=== PATIENT | male | born 2000 | race Caucasian/White ===

== ENCOUNTER → 2023-12-09 | Outpatient (CLI) | payer OTHER ==
[2023-12-09 16:09] LABS: BUN/Creat Ratio 21.12 Ratio (12.00-20.00); Blood Urea Nitrogen 16.9 mg/dL (9.0-27.0); Carbon Dioxide 23.2 mmol/L (21.6-31.8); Chloride 103 mmol/L (96-109); Glucose 88 mg/dL (70-110); Potassium 4.2 mmol/L (3.5-5.5); Sodium 139 mmol/L (135-145); Testosterone <10.00 ng/dL (123.06-813.86)
--- NOTE | 2023-12-10 00:03 | XR ---
EXAMINATION TYPE: XR lumbar spine 2 or 3V DATE OF EXAM: 12/09/2023 COMPARISON: None HISTORY: Back pain TECHNIQUE: 3 view lumbar spine FINDINGS: There is narrowing of the posterior disc space L5-S1. Remaining disc heights are preserved. Vertebral body heights are preserved. Alignment is normal. IMPRESSION: 1. Mild posterior degenerative disc change L5-S1
== END | disposition home or self-care (01) ==
LOC: LABWHC1 10:19
PROVIDERS: ATTEND Family Medicine
DX: F64.9 Gender identity disorder, unspecified (principal); M54.9 Dorsalgia, unspecified; M51.37 Other intervertebral disc degeneration, lumbosacral region
CPT/HCPCS: 36415; 72100; 80048; 82670; 84403

== ENCOUNTER 2024-03-02 22:32 | Emergency (ER) | payer OTHER ==
[2024-03-02 22:44] VITALS: RESP 16; TEMP 98.9
--- NOTE | 2024-03-02 22:46 | ED ---
General Adult HPI - General Chief complaint: Psychiatric Symptoms Stated complaint: Mental health Time Seen by Provider: 03/02/24 22:35 Source: patient, EMS Mode of arrival: EMS - History of Present Illness Initial comments: Dictation was produced using [employer] dictation software. please excuse any grammatical, word or spelling errors. Chief Complaint: 23-year-old individual who identifies as female but biologically male presents to the emergency department for depression and alleged suicidal ideation History of Present Illness: Patient 23-year-old individual presents to the ER for alleged suicidal ideation and depression. Patient would like to be referred to as "she"'. Patient states that after work she likes to go for walks however had a confrontation with her fianc. Ultimately ambulance was called because of concern of possible suicidal ideation. Patient denies suicidality. Denies homicidal ideation. She states that she is stressed out. She does have history of suicidal behavior. The ROS documented in this emergency department record has been reviewed and confirmed by me. Those systems with pertinent positive or negative responses have been documented in the HPI. All other systems are other negative and/or noncontributory. - Related Data Allergies Allergy/AdvReac Type Severity Reaction Status Date / Time No Known Allergies Allergy Verified 03/02/24 22:44 Review of Systems ROS Statement: Those systems with pertinent positive or pertinent negative responses have been documented in the HPI. ROS Other: All systems not noted in ROS Statement are negative. Past Medical History Past Medical History: No Reported History Past Surgical History: No Surgical Hx Reported Past Psychological History: Depression General Exam - General Exam Comments Initial Comments: General: Well-appearing, nontoxic, no acute distress. Head: Normocephalic, atraumatic Eyes: PERRLA, EOMI ENT: Airway patent Chest: Nonlabored breathing Skin: No visual rash, normal skin tone Neuro: Alert and oriented 3 Musculoskeletal: No gross abnormalities Course Vital Signs 03/02/24 22:34 Temperature 98.9 F Pulse Rate 122 H Respiratory 16 Rate Blood Pressure 137/85 O2 Sat by Pulse 98 Oximetry Medical Decision Making - Medical Decision Making Was pt. sent in by a medical professional or institution (, PA, [employer], urgent care, hospital, or long-term...) When possible be specific @ -No Did you speak to anyone other than the patient for history (EMS, parent, family, police, friend...)? What history was obtained from this source @ -No Did you review nursing and triage notes (agree or disagree)? Why? @ -I reviewed and agree with nursing and triage notes Were old charts reviewed (outside hosp., previous admission, EMS record, old EKG, old radiological studies, urgent care reports/EKG's, long-term records)? Report findings @ -No old charts were reviewed Differential Diagnosis (chest pain, altered mental status, abdominal pain women, abdominal pain men, vaginal bleeding, musculoskeletal, weakness, fever, dyspnea, syncope, headache, dizziness, GI bleed, back pain, seizure, CVA, palpatations, mental health)? @ -Differential Mental Health: Depression, anxiety, bipolar, psychosis, schizophrenia, borderline personality, situational depression, adjustment disorder, behavioral disorder, brain tumor, malingering, substance abuse, encephalopathy, medication reaction, dementia, hypothyroidism, degenerative neurologic disorder, lupus.... This is not meant to be all-inclusive list EKG interpreted by me (3pts min.). @ -None done X-rays interpreted by me (1pt min.). @ -None done CT interpreted by me (1pt min.). @ -None done U/S interpreted by me (1pt. min.). @ -None done What testing was considered but not performed or refused? (CT, X-rays, U/S, labs)? Why? @ -None What meds were considered but not given or refused? Why? @ -None Was smoking cessation discussed for >3mins.? @ -No Were there social determinants of health that impacted care today? How? (Homelessness, low income, unemployed, alcoholism, drug addiction, transportation, low edu. Level, literacy, decrease access to med. care, fdc, rehab)? @ -No Was there de-escalation of care discussed even if they declined (Discuss DNR or withdrawal of care, Hospice)? DNR status @ -No What co-morbidities impacted this encounter? (DM, HTN, Smoking, COPD, CAD, Cancer, CVA, ARF, Chemo, Hep., AIDS, mental health diagnosis, sleep apnea, morbid obesity)? @ -None Was patient admitted / discharged? Hospital course, mention meds given and route, prescriptions, significant lab abnormalities, going to OR and other pertinent info. @ -23-year-old patient presents to the ER for psychiatric evaluation. Vital signs stable. Patient has no complaints. Physical examination is unremarkable. Patient medically cleared for EPS. We do not have EPS available for evaluations until tomorrow morning. Patient did not feel like she wanted to wait. No petition was completed. Patient is safe for discharge. No psychosis. No psychiatric emergencies identified. Patient given outpatient resources. Did you discuss the management of the patient with other professionals (professionals i.e. , PA, [employer], lab, RT, psych nurse, clinical social work aide, administrative processor, teacher, conservation officer, rn case manager)? Give summary @ -No Was critical care preformed (if so, how long)? @ -No Undiagnosed new problem with uncertain prognosis? @ -No Drug Therapy requiring intensive monitoring for toxicity (Heparin, Nitro, Insulin, Cardizem)? @ -No Were any procedures done? @ -No Diagnosis/symptom? Acute, or Chronic, or Acute on Chronic? Uncomplicated (without systemic symptoms) or Complicated (systemic symptoms)? @ -Depression Side effects of treatment? @ -No Exacerbation, Progression, or Severe Exacerbation? @ -No Poses a threat to life or bodily function? How? (Chest pain, [place], [place], pneumonia, PE, COPD, DKA, ARF, appy, cholecystitis, CVA, Diverticulitis, Homicidal, Suicidal, threat to staff... and all critical care pts) @ -yes Disposition Clinical Impression: Depression Disposition: HOME SELF-CARE Condition: Good Instructions (If sedation given, give patient instructions): Depression (ED) Is patient prescribed a controlled substance at d/c from ED?: No Referrals: Josh De Los Santos MD [Primary Care Provider] - 1-2 days Time of Disposition: 23:43
[2024-03-02 23:54] VITALS: BP 121/77; PULSE 96
== END 2024-03-02 23:54 | disposition home or self-care (01) ==
LOC: EDSEX → EC 22:32
DX: F32.A Depression, unspecified (principal)
CPT/HCPCS: 82075; 99284